=== PATIENT | female | born 1985 | race Caucasian/White ===

== ENCOUNTER 2021-08-11 10:53 | Outpatient (CLI) | payer BC, SELFPAY ==
--- NOTE | 2021-08-11 11:00 | ECG_ITS ---
Measurements Intervals [place] Rate: 95 P: 11 MA: 174 QRS: 48 QRSD: 81 T: 23 QT: 359 QTc: 452 Interpretive Statements SINUS RHYTHM LEFT ATRIAL ENLARGEMENT [-0.15mV P WAVE IN V1/V2] MINIMAL ST CHANGES NO PREVIOUS ECG AVAILABLE FOR COMPARISON Electronically Signed On 08-12-2021 13:30:46 CDT by Gretchen Lambert M.D.
[2021-08-11 11:19] LABS: Hematocrit 40.6 % (37.0-47.0); Hemoglobin 12.4 g/dL (12.0-15.0); Mean Corpuscular HGB Conc 30.5 g/dl (32-36); Mean Corpuscular Hemoglobin 27.8 pg (26-34); Mean Platelet Volume 10.3 fl (7.4-10.4); Platelet Count Result 277 k/mm3 (150-375); Red Blood Count 4.46 M/mm3 (4.2-5.4); Red Cell Distribution Width 13.1 % (11.5-14.5); White Blood Count 10.9 K/mm3 (4.5-10.0)
[2021-08-11 11:30] LABS: Anion Gap 5 mmol/L (8-16); Blood Urea Nitrogen 14 mg/dL (7-17); Calcium 8.5 mg/dL (8.4-10.2); Carbon Dioxide 25 mmol/L (22-30); Chloride 109 mmol/L (98-107); Estimated Glomerular Filt Rate > 60; Glucose 151 mg/dL (65-110); Potassium 3.8 mmol/L (3.4-5.0); Sodium 139 mmol/L (137-145)
== END 2021-08-11 10:54 | disposition home or self-care (01) ==
LOC: ANHSURGERY 10:58
PROVIDERS: Anesthesiology; Visit Provider Obstetrics & Gynecology Gynecologic Oncology
DX: Z01.818 Encounter for other preprocedural examination (principal); I10 Essential (primary) hypertension
CPT/HCPCS: 36415; 80048; 85027; 86850; 86900; 86901; 93005

== ENCOUNTER 2021-08-21 01:41 | Day surgery (SDC) | payer BC, SELFPAY ==
[2021-08-10 14:10] VITALS: BMI 55.0
--- NOTE | 2021-08-10 14:57 | PC.NURSE ---
Report to the Outpatient Waiting Room, entrance under the green pavilion located off [facility], at time _08:00_ on date _08/21/21. OR Time: _10:00_. IF YOUR SURGERY IS CHANGED, WE WILL CALL YOU ON 08/20/21 AFTERNOON - You and your visitor will be asked a series of questions to screen for COVID 19 for your protection. - A mask is required within the hospital. Preoperative COVID Testing Requirements: No COVID Test is needed - Patients may have clear liquids (water, carbonated beverages, clear teas, apple juice) until 3 hours prior to surgery with a maximum of 20 ounces. - No food from midnight until time of surgery - Take the following medications with a SIP of water the morning of surgery: METOPROLOL, INHALER, DULOXETINE Medications to discontinue per physician N/A Date to take last dose____N/A Please no make-up, nail cymro, hairspray, perfume, deodorant, or body powder the day of surgery. No jewelry (including any body piercings) or valuables the day of surgery, leave them at home. Please take a shower or bath the night before, or the morning of, surgery with an antibacterial soap. Wear comfortable, loose fitting clothing. - Jewelry must be removed prior to entering the operating room. Rings and piercings that are not removed may be cut off. - The hospital will not accept responsibility for valuables. - Please leave all valuables, including medications, at home the day of surgery. If you are going home after surgery, a licensed warehouse delivery driver must drive you home. - NO public transportation without another adult. - We recommend that an adult stay with you for 24 hours following discharge. - We also recommend that you do not drive, make important decision, drink alcoholic beverages, or take any drugs that were not prescribed by your health care provider for at least 24 hours after your discharge time. One visitor will be allowed to accompany the patient into the hospital. Patients visitor will be instructed to remain with patient at all times or leave the building. We will allow the visitor to come back to the postoperative area when patient is ready. Follow any additional instructions given to you from your surgeon. Telephone instructions given to _JAKE__and asked if any additional questions and then verbalized understanding. Patient advised to call surgeon office or pre surgery nurse liaison [phone] if any additional questions.
--- NOTE | 2021-08-20 14:21 | P.PNAN_ITS ---
Anes - Eval Pre Procedure Procedure: Operation Date: 08/21/21 10:00 Proposed Procedures p Diagnostic Laparoscopy, Bilateral Salpingectomy - Jazmyne Perez DO Date/Time: 08/20/21 14:21 Pre Op Diagnosis: desires sterility Patient Data Age: 36 Gender: F Height: 1.65 m Weight: 150 kg Allergies Allergy/AdvReac Type Severity Reaction Status Date / Time Penicillins Allergy Unknown UNKNOWN Unverified 12/11/10 11:15 Home Medications Medication Instructions Recorded Confirmed Type albuterol sulfate 2 puff INHALATION Q4-5H PRN 08/10/21 08/10/21 History cetirizine 10 mg PO DAILY PRN 08/10/21 08/10/21 History duloxetine 60 mg PO DAILY 08/10/21 08/10/21 History hydrochlorothiazide 12.5 mg PO DAILY 08/10/21 08/10/21 History metoprolol succinate 25 mg PO DAILY 08/10/21 08/10/21 History Patient hx anesthesia problems: none Family hx anesthesia problems: none Results Review: All pre-operative results and documents have been reviewed as part of the pre-operative evaluation. [facility] Past Medical History Medical History (Updated 08/20/21 @ 14:21 by Fortino Peraza DO) Anxiety Asthma Depression Hypertension Social History Social History Smoking packs per day: 0.5 Smoking cigarettes per day: 10.0 Years smoked: 10 Smoking pack-years: 5.00 Smoking status: Current every day smoker Tobacco type: cigarettes Second hand tobacco smoke exposure: No Substance use: never Substance use type: does not use Spiritual care concerns: No Exam Day of Procedure 08/20/21 14:21
[2021-08-21] VITALS (7 sets, daily range): BP systolic 111–158; BP diastolic 69–84; PULSE 64–100; RESP 16–24; TEMP 36–36.3; O2SAT 93–99
--- NOTE | 2021-08-21 07:29 | SUR.PREOP ---
Dr. Murray and Dr. Malone aware of abnormal EKG reporting a-fib 99bpm. Per Dr. Murray OK to proceed with rate controlled for low stress surgery. Patient educated on a-fib and need for follow up and risks for no treatment. Patient feels OK to proceed with surgery. Dr. Malone aware of Dr. Murray's recommendation and is OK with proceeding. KENNA Falk aware of EKG as well.
--- NOTE | 2021-08-21 07:44 | WPDANESEPPF ---
Anes - Initial Pre Proc Eval Procedure: Operation Date: 08/21/21 10:00 Proposed Procedures p Diagnostic Laparoscopy, Bilateral Salpingectomy - Jazmyne Perez DO Date/Time: 08/21/21 07:44 Surgeon: Jazmyne Perez DO Pre Op Diagnosis: desires sterility Patient Data Age: 36 Gender: F Height: 1.65 m Weight: 150 kg Allergies Allergy/AdvReac Type Severity Reaction Status Date / Time Penicillins Allergy Unknown UNKNOWN Unverified 12/11/10 11:15 Home Medications Medication Instructions Recorded Confirmed Type albuterol sulfate 2 puff INHALATION Q4-5H PRN 08/10/21 08/10/21 History cetirizine 10 mg PO DAILY PRN 08/10/21 08/10/21 History duloxetine 60 mg PO DAILY 08/10/21 08/10/21 History hydrochlorothiazide 12.5 mg PO DAILY 08/10/21 08/10/21 History metoprolol succinate 25 mg PO DAILY 08/10/21 08/10/21 History Patient hx anesthesia problems: none Family hx anesthesia problems: none Results Review: All pre-operative results and documents have been reviewed as part of the pre-operative evaluation. [facility] Past Medical History Medical History (Updated 08/20/21 @ 14:21 by Fortino Peraza DO) Anxiety Asthma Depression Hypertension Social History Social History Smoking packs per day: 0.5 Smoking cigarettes per day: 10.0 Years smoked: 10 Smoking pack-years: 5.00 Smoking status: Current every day smoker Tobacco type: cigarettes Second hand tobacco smoke exposure: No Substance use: never Substance use type: does not use Living arrangements: with family Spiritual care concerns: No Anes - Eval Final PreProcedure Day of Procedure 08/21/21 07:44 Patient weight: super morbidly obese Heart: regular rate and rhythm Lungs: clear to auscultation and normal air movement Airway: Mallampati scale class III Neurological: alert and oriented Last oral intake: >/= 8 hours ASA classification: III Emergent: no Anesthetic plan: proceed Anesthesia type and monitoring: general ETT and standard monitoring Results Review: All pre-operative results and documents have been reviewed as part of the pre-operative evaluation. Informed Consent: The patient's anesthetic plan and its attendant risks and benefits were discussed with the patient/family/POA. Questions were solicited and answers provided to the satisfaction of the patient/family/POA.
[2021-08-21] MEDS: LACTATED RINGERS 1,000 ML 30 ML IV CONT ×2 (08:45→11:36)
[2021-08-21] MEDS: ACETAMINOPHEN 500 MG TABLET 1000 MG PO (08:52)
[2021-08-21] MEDS: GABAPENTIN 300 MG CAPSULE PO (08:53)
--- NOTE | 2021-08-21 09:49 | P.HP_ITS ---
H&P: HPI History of Present Illness Date/Time: 08/21/21 09:49 Chief Complaint: I'm here for my surgery Narrative: patient presents desiring sterilization. She desires removal of her Nexplanon but it's quite deep on x-ray and has been difficult to palpate. She understands if not superficial and easily palpated I will not attempt removal and she will need to see a general surgeon. Review of Systems Review of Systems: All systems reviewed & are unremarkable except as noted in HPI and below [facility] Past Medical History Medical History (Updated 08/21/21 @ 09:50 by Jazmyne Perez DO) Anxiety Asthma Depression Hypertension Social History Social History Smoking packs per day: 0.5 Smoking cigarettes per day: 10.0 Years smoked: 10 Smoking pack-years: 5.00 Smoking status: Current every day smoker Tobacco type: cigarettes Second hand tobacco smoke exposure: No Substance use: never Substance use type: does not use Living arrangements: with family Spiritual care concerns: No Meds Home Medications and Allergies Home Medications Medication Instructions Recorded Confirmed Type albuterol sulfate 2 puff INHALATION Q4-5H PRN 08/10/21 08/10/21 History cetirizine 10 mg PO DAILY PRN 08/10/21 08/21/21 History duloxetine 60 mg PO DAILY 08/10/21 08/21/21 History hydrochlorothiazide 12.5 mg PO DAILY 08/10/21 08/21/21 History metoprolol succinate 25 mg PO DAILY 08/10/21 08/21/21 History Allergies Allergy/AdvReac Type Severity Reaction Status Date / Time Penicillins Allergy Unknown UNKNOWN Unverified 12/11/10 11:15 Vital Signs Vital Signs - 24 hr 08/21/21 08:57 Temperature 36.3 C L Pulse Rate 65 Respiratory Rate 20 Blood Pressure 111/84 Pulse Oximetry 98 Exam Const: General: comfortable and no acute distress Resp: Auscultation: clear to auscultation bilaterally Cardio: Rate: regular rate Rhythm: regular rhythm GI: GI Palp: Yes Soft to palpation Percussion: Yes normal to percussion Auscultation: normal bowel sounds Skin: General skin exam: normal color and no rashes or lesions noted Neuro: General: gait normal Speech: normal speech Motor exam (neuro): Abnormal motor strength present Psych: Mental Status: mental status grossly normal Affect: normal affect Assessment and Plan Assessment and plan (1) Sterilization: Code(s): Z30.2 - Encounter for sterilization Status: Acute (2) Nexplanon in place: Code(s): Z97.5 - Presence of (intrauterine) contraceptive device Status: Acute
--- NOTE | 2021-08-21 09:51 | WPDHPUPDATE1 ---
History and Physical Update Update Date/Time: 08/21/21 09:51 History and Physical has been reviewed, including an updated exam of the patient. There are NO changes in the patient's condition. Risks, benefits, and alternatives have been discussed and questions answered. Patient agrees to proceed with procedure.
[2021-08-21] MEDS: BUPIVACAINE/EPINEPHRINE 0.25% 50 ML VIAL INFILTRATE (10:30)
--- NOTE | 2021-08-21 10:57 | W.PM.PROC2 ---
Procedure Note - Detailed Date of Procedure 08/21/21 Pre-op Diagnosis desires sterility Post-op Diagnosis Other (Endometriosis Stage I, polycystic ovarian cystic) Procedure Performed Diagnostic laparoscopy, bilateral salpingectomy Surgeon Jazmyne Perez, DO Anesthesia General Indications Desires permanent sterilization Findings Normal appearing vulva and vaginal canal. Small cervix. Internally, there were 3 very small filmy omental adhesions on the left anterior abdominal wall. The uterus and bladder flap were normal. Tubes were unremarkable. The ovaries appeared polycystic in appearance. There were two isolated implants that appeared consistent with endometriosis. The first implant was just lateral to the left IP and was a small 1 mm cigarette burn style lesion. The second was at the base of the left uterosacral ligament where it meets the rectal fat. No other lesions were seen. Description of Procedure The patient was taken to the operating room she was prepped and draped in the normal sterile fashion in the dorsal lithotomy position. She was placed under general anesthesia. A time-out was performed. No preoperative antibiotics were indicated. A speculum was placed on the cervix was visualized. The anterior lip was grasped with a single-tooth tenaculum. Cervix was sequentially dilated up to accommodate a Kroner uterine manipulator which was placed without difficulty. The uterus was sounded to 8 cm. Gloves were changed and attention was then turned to the abdomen. The skin below the umbilicus was grasped with 2 penetrating towel clamps and elevated. The skin was injected with local containing epinephrine. An incision was made with a scalpel and a Veress needle was introduced. Unfortunately, there were 2 unsuccessful attempts at a saline water drop test. This approach was abandoned and direct entry was easily achieved on the 1st approach using a 5 mm Optiview trocar. CO2 insufflation was started and the abdomen was brought up to a filling pressure of 15 mmHg. The patient was placed in steep Trendelenburg position and a CO2 insufflation was dropped to 11 mmHg to help with respiratory support due to the patient's obesity. Survey of the pelvic organs revealed the above-mentioned findings. Additional port sites in the right and left lower quadrants were identified, injected, incised and 5 mm trocars were placed under direct visualization. Once the trocars were in place the right tube was elevated and was cauterized and transected off using the LigaSure. It was then passed off through the assistant professor of radiology port. The procedure was repeated in an identical fashion on the left-hand side. The small cigarettes trial burn lesion that was seen lateral to the left IP was noted was elevated and the peritoneum was cauterized and transected off and then passed off. The 2nd lesion noted at the base of the left uterosacral was not amenable to dissection due to the patient's copious bowel fat therefore I elected to ablate it instead. The patient's ovaries appeared polycystic bilaterally and several of the cysts were drained to prevent pain and normalization of ovulation in the future. The surgical pedicles were reinspected and found to be hemostatic. All instruments and trocars were removed and the CO2 gas was allowed to escape. Patient was taken out of Trendelenburg position. The uterine manipulator was removed. All instrument sponge counts were correct at the conclusion of the procedure. The patient was taken to the recovery room in stable condition. Implants None Estimated Blood Loss 3 IV Fluids 900 Drains No Packing No Pathology Yes Complications No immediate complications Condition Stable Disposition PACU
[2021-08-21] MEDS: fentaNYL CITRATE INJ (*CRX) 100 MCG/2 ML VIAL 25 MCG IV PUSH ×4 (11:06→11:30)
[2021-08-21] MEDS: oxyCODONE HCL (*CRX) 5 MG TAB IR PO (12:10)
== END 2021-08-21 12:50 | disposition home or self-care (01) ==
PROVIDERS: Visit Provider Obstetrics & Gynecology Gynecologic Oncology
PROC: (CPT 49320; principal; 2021-08-21 10:00)
DX: Z30.2 Encounter for sterilization (principal); E28.2 Polycystic ovarian syndrome; N80.3 Endometriosis of pelvic peritoneum; K21.9 Gastro-esophageal reflux disease without esophagitis; F32.9 Major depressive disorder, single episode, unspecified; F41.1 Generalized anxiety disorder; Z86.16 Personal history of COVID-19
CPT/HCPCS: 58661; 58662; 88302; 88305; A9270; J1100; J2250; J2405; J2704; J3010; J7030; J7120